=== PATIENT | female | born 1965 | race Caucasian/White ===

== ENCOUNTER 2016-08-21 03:30 | Inpatient (IN) | payer MEDICARE, OTHER ==
--- NOTE | ~2016-08-21 | CT71 ---
[facility] A Service of [facility] [place] RADIOLOGY TEXT RESULTS PATIENT: JOSE BELTRAN LOCATION: [facility] [address]16-32 : [birth year] UNIT #: [id number] AGE: [address]: Brittany Linder MD SEX: F ORDER DR: [id number] [facility] [address] [facility]. [place], [place] [address] [id number] MR#: [id number] Acc #: [id number] NAME: JOSE BELTRAN : 1965 SEX: F STUDY DATE/TIME: 08/21/2016 03:51 UNIT: [facility] ROOM: 55483 STUDY DESCRIPTION: CT Head Wo Contrast Attending Physician: Brittany Linder M.D. Ordering Physician: Magnolia FletcherPDannyRAscencion Primary Care Physician: Magnolia MusaPDannyRAscencion MEDICAL IMAGING REPORT This report is preliminary unless electronic signature is present EXAM Head CT, 08/21/2016 at 0351 hours. INDICATION Headaches with shaking and dizziness and generalized weakness that worsened yesterday. Symptoms started about 1 week ago intermittently. TECHNIQUE Axial images were obtained from the base to the vertex without contrast. Comparison is made with 05/05/2003. This CT exam was performed with one or more of the following radiation dose reduction techniques: automatic exposure control, adjustment of mA and/or kV according to patient size, and iterative reconstruction. FINDINGS There are some atherosclerotic calcifications in the carotid siphons and vertebral arteries. There are no skull fractures. Ventricular size and configuration are normal. There is no acute infarct or hemorrhage. There are no masses. IMPRESSION Mild intracranial atherosclerotic disease, otherwise negative head CT. Dictated by... Jose M Sidhu Jr., M.D. THIS IS AN ELECTRONICALLY VERIFIED REPORT Jose M Sidhu Jr., M.D. at 08/21/2016 5:30 AM EVAN/tamiko [facility] A Service of [facility] [place] RADIOLOGY TEXT RESULTS PATIENT: JOSE BELTRAN LOCATION: [facility] [address]58-69 : [birth year] UNIT #: [id number] AGE: [address]: Brittany Linder MD SEX: F ORDER DR: TD: 08/21/2016 05:12 JOB #: [id number] MEDICAL IMAGING REPORT COPY
--- NOTE | ~2016-08-21 | HP ---
Unit #: [id number] #: [id number] Patient: JOSE BELTRAN [id number] [address] [place], [place] [address] [id number] MR#: [id number] NAME: JOSE BELTRAN ROOM: 13881 Age: 51 Sex: F Admission Date: 08/21/2016 : 1965 Attending Physician: Brittany Linder M.D. Primary Care Physician: Shakeel Mccabe A.P.R.N. HISTORY AND PHYSICAL CHIEF COMPLAINT Lightheadedness, melena. HISTORY This 51-year-old female with COPD, chronic pancreatitis, IDDM, and previous admissions for GI bleeding, is admitted for melena and symptomatic anemia. The patient notes increasing weakness over the past week, and her family stated that she was pale appearing. Yesterday, developed melena, frontal headache, lightheadedness, nausea. She presents to this emergency department with a hemoglobin of 6.9, hematocrit of 22.3, MCV is low. On rectal examination, she does have heme positive stools. She is bolused with 500 mL of normal saline, given Zofran, Tylenol and Protonix. She does have abdominal pain but this is chronic, related to her chronic pancreatitis. The patient was last admitted to this facility 10/2015, for melena. An EGD was performed revealing small AVMs which were cauterized. Last colonoscopy, I believe, was 01/2015. A small polyp was removed. The patient reports capsule endoscopy but I do not have those results. PAST MEDICAL HISTORY 1. IDDM x6 years. 2. Hypertension. 3. COPD. 4. Chronic pancreatitis. 5. Anxiety and depression. 6. Chronic pain and chronic pancreatitis. 7. GI bleeding in the past. 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 Capsule endoscopy has been performed as well. 8. Colonoscopy, small polyp removed. 9. x2. ALLERGIES No known drug allergies. HOME MEDICATIONS 1. Lantus 24 units if sugar is greater than 250. 2. Neurontin 300 mg t.i.d. 3. Lisinopril 5 mg daily. 4. Paxil 20 mg daily. 5. Elavil 25 mg q. h.s. Unit #: [id number] #: [id number] Patient: JOSE BELTRAN 6. Prilosec two tablets daily. 7. Creon 25,000 units t.i.d. with meals. 8. Lortab 7.5 t.i.d. FAMILY HISTORY Throat cancer. SOCIAL HISTORY The patient lives with her daughter. Smokes one pack per day of tobacco, does not drink alcohol. REVIEW OF SYSTEMS Notable for chronic abdominal pain, melena, lightheadedness, headache, nausea, diabetes, hypertension, COPD, tobacco use, chronic pancreatitis, AVMs in the upper GI tract which were cauterized, above mentioned surgeries. All other systems were reviewed and are negative. PHYSICAL EXAMINATION GENERAL APPEARANCE: Pleasant, pale, thin, 51-year-old female, currently in no acute distress. VITAL SIGNS: Temperature 97.7, pulse 88, respirations 18, blood pressure 150/76. O2 saturation is 92% on room air. HEENT: Eyes PERRLA. Extraocular muscles are intact. Pharynx is benign. NECK: Supple without adenopathy or thyromegaly. CHEST: Expiratory wheezes. CARDIAC: Normal S1 and S2 without S3, S4 or murmur. ABDOMEN: Bowel sounds are present. Well-healed midline scar below the umbilicus. Mild distention. There is upper abdominal tenderness which the patient states is chronic. No definite hepatosplenomegaly or masses. RECTAL: Rectal examination in the ER was heme positive. EXTREMITIES: Without clubbing, cyanosis or edema. Pedal pulses are present. NEUROLOGIC EXAM: The patient is awake, alert, oriented. Cranial nerves are intact. Equal strength throughout. DIAGNOSTIC STUDIES LABORATORY: Admission labs - hematocrit is 22.3, hemoglobin 6.9, MCV is 66, white blood count 15.3, platelet count is 642. Coags normal. Chemistries pending. CARDIOVASCULAR: EKG - normal sinus rhythm, rate 74 with somewhat peaked T waves. ASSESSMENT 1. Melena, suspect upper gastrointestinal bleeding again: The patient does have a history of upper GI AVMs cauterized in the past. 2. Symptomatic microcytic anemia secondary to bleeding. 3. Chronic pancreatitis with chronic pain. 4. Insulin dependent diabetes mellitus. 5. Chronic obstructive pulmonary disease with mild exacerbation. PLANS 1. Transfuse two units of blood, obtain serial H and H, consult GI, and give IV proton pump inhibitor. 2. Lantus and sliding scale insulin. Current Accu-Chek is 186. IV Unit #: [id number] #: [id number] Patient: JOSE BELTRAN fluids with dextrose until taking p.o. 3. SCDs for DVT prophylaxis. 4. Duo-Nebs and NicoDerm patch. 5. Await chemistries. Dictated by Brittany Linder M.D. AML/df TD: 08/21/2016 05:28 JOB #: [id number] HISTORY AND PHYSICAL X Brittany Linder MD X HISTORY AND PHYSICAL
--- NOTE | ~2016-08-21 | EKG ---
PATIENT: JOSE BELTRAN UNIT #: [id number] Ventricular Rate: 74 BPM Atrial Rate: 74 BPM P-R Interval: 136 ms QRS Duration: 86 ms Q-T Interval: 360 ms QTC Calculation(Bezet): 399 ms P [place]: 77 degrees Calculated R [place]: 84 degrees Calculated T [place]: 79 degrees Diagnosis Line: Normal sinus rhythm Diagnosis Line: Nonspecific T wave abnormality Diagnosis Line: Abnormal ECG Diagnosis Line: No previous ECGs available Diagnosis Line: Confirmed by SMOOTH BIRMINGHAM MD ([id number]) on Diagnosis Line: 08/21/2016 8:07:37 AM INTERPRETING MD: MURPHY
--- NOTE | ~2016-08-21 | CR72 ---
[facility] A Service of [facility] RADIOLOGY TEXT RESULTS PATIENT: JOSE BELTRAN LOCATION: [facility] [address]-57 : [birth year] UNIT #: [id number] AGE: [address]: Brittany Linder MD SEX: F ORDER DR: [id number] [facility] [address] [facility]. [place], [place] [address] [id number] MR#: [id number] Acc #: [id number] NAME: JOSE BELTRAN : 1965 SEX: F STUDY DATE/TIME: 08/21/2016 02:25 UNIT: [facility] ROOM: STUDY DESCRIPTION: CR Chest Single View Portable Attending Physician: Mikayla Muhammad A.P.R.N. Ordering Physician: Mikayla Muhammad A.P.R.N. Primary Care Physician: Bisi MusaRAscencion MEDICAL IMAGING REPORT This report is preliminary unless electronic signature is present EXAM Portable chest, 08/21/2016 at 02:25 INDICATION Dizziness, weakness, chest pain, shaking, headache and black stools since 08/20/2016. FINDINGS AP portable chest is compared with 01/19/2010. The cardiac and mediastinal contours are normal. The lungs appear emphysematous but clear. No pneumothorax is seen. IMPRESSION The lungs appear emphysematous but clear. No active disease. Dictated by... Jose M Sidhu Jr., M.D. THIS IS AN ELECTRONICALLY VERIFIED REPORT Jose M Sidhu Jr., M.D. at 08/21/2016 5:30 AM EVAN/tamiko TD: 08/21/2016 03:21 JOB #: [id number] MEDICAL IMAGING REPORT COPY
--- NOTE | ~2016-08-21 | CO ---
Unit #: [id number] #: [id number] Patient: JOSE BELTRAN [id number] [address] [place], [place] [address] [id number] I MR#: [id number] NAME: JOSE BELTRAN. ROOM: 571 Age: 51 Sex: F Admission Date: 08/21/2016 : 1965 Attending Physician: Mookie Payan M.D. Primary Care Physician: Shakeel Mccabe A.P.R.N. Requesting Physician: Brittany Linder M.D. Consultation Date: 08/21/2016 CONSULTATION REPORT REASON FOR CONSULTATION GI bleed, anemia. HISTORY OF PRESENTING ILLNESS Ms. Beltran is a 51-year-old lady known to me from previous admissions. She has a history of GI bleeding from duodenal AVMs as well as chronic pancreatitis and chronic pain. She has a history of alcoholism. She was admitted last night complaining of weakness and black stools. She was found to have a hemoglobin of 6.9. She says she started with black stools yesterday morning. She has no nausea, vomiting or hematemesis. She has chronic abdominal pain which hasn't changed. She has no fever, no chills. She does take some NSAIDs occasionally despite telling her not to. PAST HISTORY Significant for: 1. EGD last year where multiple AVMs were seen in the duodenum and cauterized using APC. 2. Also has history of COPD. 3. Hypertension. 4. Type 2 diabetes mellitus. 5. Chronic pancreatitis. 6. Last colonoscopy was in 2014 where a small polyp was removed. MEDICATIONS Medications at home include: 1. Lantus insulin. 2. Neurontin. 3. Lisinopril. 4. Paxil. 5. Elavil. 6. Prilosec. 7. Creon. 8. Lortab. FAMILY HISTORY Noncontributory. SOCIAL HISTORY Smoker. Says no alcohol since 2008. REVIEW OF SYSTEMS A complete ten point review of systems was done which was unremarkable other than as mentioned above. Unit #: [id number] #: [id number] Patient: JOSE BELTRAN PHYSICAL EXAMINATION VITAL SIGN: Stable. No acute distress. HEENT: Pupils equal and reactive. Sclerae anicteric. Oral mucosa moist. NECK: No JVD, no lymphadenopathy. CHEST: Clear to auscultation, a few wheezes. CARDIOVASCULAR SYSTEM: Regular rate and rhythm. No murmurs. ABDOMEN: Mildly tender in the epigastric and umbilical area. No masses palpable, no ascites, no distention. RECTAL: Rectal exam in the emergency room heme positive. NEUROLOGICAL EXAM: Negative. DIAGNOSTIC STUDIES LABORATORY: Hemoglobin of 6.9, MCV of 66, Hemoccult positive. LFTs normal. ASSESSMENT AND PLAN 1. Patient with melenic stool: Possible recurrent upper GI bleeding from AVM's. Will plan on doing an upper endoscopy and a push enteroscopy for evaluation and cauterizing the lesions if seen. 2. Severe anemia: Seems to be acute on chronic. Will replace blood. Will also need replacement of iron, B12 and folate if found to be low. 3. Chronic pancreatitis: Continue with pain management and Creon. 4. Diabetes mellitus. 5. Chronic obstructive pulmonary disease. Thank you Dr. Linder for this interesting consult. Will follow along. Dictated by... Diego Andre M.D. COMFORT/betzaida TD: 08/21/2016 09:15 JOB #: [id number] CONSULTATION REPORT X Diego Andre MD X CONSULTATION REPORT
--- NOTE | ~2016-08-21 | A ---
[facility] Nutrition Therapy DATE: 08/21/16 Patient: JOSE Nielsen BELTRAN Physician: BLANCO Address: [address] [place] [address] Room/Bed: [address] [place] [address], Zip: [place] [address] Admit Date: 08/21/16 Date of : [birth year] Height: 5 0 Weight: 91 41.27 NUTRITIONAL ASSESSMENT: REASON: Seen for low BMI Admitting Dx: 51 y/o female admitted with possible GI bleed PMH: COPD, HTN, IDDM, GI bleed, chronic pancreatitis Anthropometrics: Ht: 63", Wt: 41.3 kg (90 lbs), BMI: 17, past weights: 70-94 lbs, weight on 11/29/15: 70 lbs Labs: Na 120, glucose 185, POC 184-227 Meds: Zofran prn, Creon 12, Levemir, PPI I/O & Bowel function: LBM 08/20, abdomen distended Skin Integrity: No issues, edema BLE trace Estimated Nutrition Needs: Increased Assessment: Chart reviewed, events noted. Patient admitted with possible GI bleed, is on 2L nasal cannula, A/O x 3, some anxiety. RD previously assessed this patient with last assessment on 11/29/15- note reviewed. The patient was 70 lbs at that time, she confirms 20 lb weight gain since that time. RD provided low-fat/CC diet education during that admission. The patient is currently NPO for endoscopy but she states her MD is gone for the day so she will not be having the procedure done. She states she wants to eat. She says she has had a recent admission at [facility] and she was drinking [address] wrote in patient's chart to order regular diet with Glucerna QID if ok with MD if the patient is not going to endo today. See RD recs, will follow hospital course. Dx: Underweight r/t history, clinical condition AEB BMI 17. Intervention: Regular diet, Glucerna QID Monitoring, Evaluation and Goals: 1. Adequate oral intake > 75% of meals/supps. 2. Gradual weight gain towards a healthy BMI range. 3. Improvement in blood glucose labs. Monitor: Per protocol, criteria to determine if above goals met [facility] Therapy DATE: 08/21/16 Patient: JOSE BELTRAN Physician: BLANCO Address: [address] [place] [address] Room/Bed: [address] [place] [address], Zip: [place] [address] Admit Date: 08/21/16 Date of : [birth year] Height: 5 0 Weight: 91 41.27 Recommendations: 1. Once medically able please order regular diet with chocolate Glucerna shakes QID. Encourage adequate oral intake. Patient has increased nutrient needs. 2. Please weigh q 3 days for monitoring purposes, as the patient is underweight. 3. Consider adding a SSI to medication regimen if hyperglycemia persists. Continue pancreatic enzymes 2/2 hx of chronic pancreatitis. Please add a daily MVI with minerals. RD will follow hospital course Mild-moderate nutrition risk Respectfully, Amanda Coreas, JOLEEN, LD Food and Nutritional Services [facility] cc: client file
--- NOTE | ~2016-08-21 | DS ---
Unit #: [id number] #: [id number] Patient: JOSE BELTRAN [id number] [address] [address] [id number] I MR#: [id number] NAME: JOSE BELTRAN ROOM: 571 Age: 51 Sex: F Admission Date: 08/21/2016 : 1965 Discharge Date: 08/22/2016 Attending Physician: Mookie Payan M.D. Primary Care Physician: Shakeel Mccabe A.P.R.N. DISCHARGE SUMMARY DISCHARGE DIAGNOSES 1. Likely acute lower gastrointestinal bleed with melena. 2. Acute blood loss anemia due to #1. The patient has received 2 units of blood transfusions. Hemoglobin and hematocrit were stable at 9.7 and 30.1 at this time. 3. Chronic pancreatitis. 4. Type 2 diabetes. 5. Chronic obstructive pulmonary disease. 6. Essential hypertension. 7. Anxiety and depression. 8. Chronic headache that keep worsening. CONSULTANTS Dr. Andre with Gastroenterology, who is scheduled to perform an endoscopy on this patient today. DIAGNOSTIC STUDIES IMAGING STUDIES: Consist of x-ray on 08/21/2016, impression is, the lungs appeared emphysematous, but clear. No active disease. Head CT without contrast, impression, mild intracranial atherosclerotic disease, otherwise negative PET-CT. LABORATORY RESULTS: Include BMP; glucose 130 and 176, BUN 6, creatinine 0.3. Sodium 135, potassium 4.0, chloride 199, CO2 of 26, calcium 9.2, total protein 6.5, total albumin 3.3, total bilirubin is 0.3. AST is 18, ALT is 12, alkaline phosphatase is 81, amylase is 7, and lipase is 15. CBC; WBC 13.3, RBC 4.26, hemoglobin 7.9, hematocrit 30.1, and MCV is 71.6, MCH is 22.8, MCHC is 31.8, RDW is 22.5, platelets 515, MPV is 6.4. HOSPITAL COURSE The patient is a 51-year-old female with past medical history of GI bleed, COPD, chronic pancreatis, type 2 diabetes, previous GI bleed, who presents to emergency department due to weakness for the last one week and noted to be pale by her family. On the day prior to admission, the patient had developed melena, frontal headache, lightheadedness, nausea. The patient presents to the emergency department, where her hemoglobin and hematocrit was found to be 6.9 and 22.3. On rectal exam, she did have heme-positive stools. She was bolused with normal saline, given Zofran, Tylenol, and Protonix. She has also had abdominal pain, but it is chronic and related to chronic pancreatis. She was admitted to this facility in 10/2015 for melena and EGD was performed, which revealed small AVMs, which are cauterized. Colonoscopy was done in 01/2015, a small polyp was removed. Unit #: [id number] #: [id number] Patient: JOSE BELTRAN She was admitted for melena with likely upper GI bleed as well as acute blood loss anemia. Dr. Andre of Gastroenterology was consulted. He is taking the patient to endoscopy today. Please see report for full dictated procedure note for further details. At the time of my assessment, the patient is stable. She is no longer having any melena as she has no longer had any bowel movements. She tells me that she still have persistent headache, which sounds to be a migraine headache with sensitivity to light and noise, and was nauseas, but this time have resolved. I am recommending the patient to discharge home after the endoscopy is done, and if it is okay with Dr. Andre, I am going to try the patient on triptan to see if this will help with her headache. DISCHARGE CONDITION Stable. DISCHARGE DIET Heart healthy as well as [place]ese diet and compliance with a consistent carb, and compliance with [place] [employer] diet. ACTIVITY Resume the activity as was prior to hospitalization with ambulating every day as tolerated. DISCHARGE FOLLOWUP She is to follow up with primary care physician within 1 to 2 weeks and follow up with Dr. Andre per his orders. DISCHARGE MEDICATIONS Includes Neurontin 300 mg orally t.i.d., amitriptyline 25 mg orally daily, Paxil 20 mg orally daily, Lantus 24 units subcutaneously daily, Lortab 7.5 one tablet orally t.i.d., Prilosec 20 mg orally daily, Creon one capsule orally t.i.d. I will be giving her a trial of sumatriptan (Imitrex) 25 mg orally to be repeated every two hours for unresolved symptoms not to exceed more than 200. Dictated by... Elizabeth Vaughn PA-C for [place] Glover/suresh TD: 08/25/2016 10:47 JOB #: [id number] DISCHARGE SUMMARY X X DISCHARGE SUMMARY
--- NOTE | ~2016-08-21 | OR ---
Unit #: [id number] #: [id number] Patient: JOSE BELTRAN [id number] [address] [place], [place] [address] [id number] I MR#: [id number] NAME: JOSE BELTRAN ROOM: 571 Date of Procedure: 08/22/2016 Admission Date: 08/21/2016 Surgeon: Diego Andre M.D. : 1965 Attending Physician: Mookie Payan M.D. Primary Care Physician: Magnolia MusaPDannyRAscencion OPERATIVE REPORT PROCEDURE PERFORMED Esophagogastroduodenoscopy to descending duodenum and enteroscopy to proximal jejunum. MEDICATIONS Monitored anesthesia. INDICATIONS The patient presented with significant upper GI bleeding, anemia of acute blood loss, history of AVMs in the past. MEDICATIONS Monitored anesthesia. POSTOPERATIVE FINDINGS 1. EGD exam shows evidence of small hiatal hernia. 2. Chronic appearing gastritis. No biopsies taken. 3. Normal duodenum and distal duodenum. 4. Proximal jejunum up to 60 cm shows normal mucosa with no evidence of any AVMs or active bleeding. PLAN Continue supportive care. Watch H and H. DESCRIPTION OF PROCEDURE The patient was explained of the procedure, risks, and benefits along with the risks and benefits of anesthesia. She was brought to the endoscopy room. Propofol anesthesia was given. Bite block was placed. The scope was passed down the mouth into esophagus, stomach, duodenum, and distal duodenum. At this point, we continued to push the scope further into the jejunum up to 60 cm. Mucosa was normal and healthy. The scope was pulled back into the stomach. Findings as described. Gently, the scope was pulled out. She tolerated it well. No major complications were seen. Dictated by... Dayton Figueroa/suresh TD: 08/23/2016 04:07 Unit #: [id number] #: [id number] Patient: JOSE BELTRAN JOB #: [id number] OPERATIVE REPORT X Diego Andre MD X PROCEDURE OPERATIVE NOTE
[2016-08-21 02:44] LABS: BASOPHIL# 0.2 X10e3 (0-0.3); BASOPHIL% 1.6 % (0-2.5); EOSINOPHIL# 0.2 X10e3 (0-0.7); EOSINOPHIL% 1.2 % (0.0-7.0); HEMATOCRIT 22.3 % (35.0-45.0); LYMPHOCYTE# 3.3 X10e3 (1.0-3.5); LYMPHOCYTE% 21.9 % (17.0-45.0); MEAN CELL VOLUME 66.7 FL (83-96); MEAN CORPUSCULAR HEMOGLOBIN 20.6 PG (28-34); MEAN CORPUSCULAR HGB CONC 30.8 g/dL (30-36); MEAN PLATELET VOLUME 6.8 FL (6.5-11.5); MONOCYTE# 1.4 X10e3 (0-1.0); MONOCYTE% 9.2 % (3.0-12.0); NEUTROPHIL# 10.1 X10e3 (1.5-7.1); NEUTROPHIL% 66.1 % (40-75); PLATELET COUNT 642 X10e3 (140-420); RED BLOOD COUNT 3.35 X10e (3.90-5.30); RED CELL DISTRIBUTION WIDTH 18.4 % (11.0-15.5); WHITE BLOOD COUNT 15.3 X10e3 (4.0-10.5)
[2016-08-21 02:46] LABS: DIFF IND YES; HEMOGLOBIN 6.9 gm/dL (12.0-16.0)
[2016-08-21 02:49] LABS: POC - CKMB 5.1 ng/mL (0.0-7.9); POC - TROPONIN <0.05 ng/mL (<=0.05)
[2016-08-21 03:10] LABS: ELLIPTOCYTES PRESENT; HYPOCHROMIA MOD; MICROCYTOSIS MOD; PLATELET ESTIMATE INCREASED (NORMAL)
[2016-08-21 03:11] LABS: BURR CELLS PRESENT
[2016-08-21 03:26] LABS: INFLUENZA A NEG (NEG); INFLUENZA B NEG (NEG)
[~2016-08-21 03:30] MED LIST: ALBUTEROL INHALER; ALBUTEROL17 G1 INH; ALBUTEROL17 GM INH; AMITRIPTYLINE H25 MG PO; APIDRA; BUTALBITAL PO; CLONAZEPAM0.5 MG PO; CREON 101 CAP; CREON DR 12,001 EAC1 PO; CREON DR 12,001 EAC2 PO; ENSURE LIQUID237 M2 PO; HYDROCODON-ACE1 EAC9 PO; LANTUS SUBQ; LANTUS100 U/ML; LOPID600 MG PO; LORTAB 10-5001 EACH PO; METOPROLOL TAR25 MG PO; MIRTAZAPINE7.5 MG PO; MULTICHEW1 TAB.CHEW PO; NEBULIZER; PHENERGAN PO; PHENERGAN25 M1 PO; PRILOSEC PO; SIMVASTATIN40 MG PO; VITAMIN D400 UNI1 PO; ZYRTEC10 M2 PO; [UNRECOGNIZED DRUG - REMARK]
[2016-08-21 03:57] LABS: ALBUMIN SERUM 3.8 g/dL (3.5-5.0); ALKALINE PHOSPHATASE 81 U/L (32-92); ALT (SGPT) 15 U/L (10-40); AMYLASE 7 U/L (0-46); AST (SGOT) 21 U/L (10-42); BILIRUBIN,TOTAL 0.4 mg/dL (0.2-2.0); BLOOD UREA NITROGEN 21 mg/dL (9-23); CALCIUM SERUM 8.1 mg/dL (8.4-10.2); CARBON DIOXIDE 24 mmol/L (22-31); CHLORIDE 87 mmol/L (100-111); CREATININE SERUM 0.5 mg/dL (0.6-1.4); GLOM FILT RATE Estimated ABOVE60 mL/min (>60); GLUCOSE FASTING 185 mg/dL (70-110); LIPASE 15 U/L (22-51); POTASSIUM 4.1 mmol/L (3.5-5.1)
[2016-08-21 03:58] LABS: BILIRUBIN, DIRECT 0.1 mg/dL (0.0-0.2); BILIRUBIN,INDIRECT 0.3 mg/dL (0.0-0.9); SODIUM 120 mmol/L (135-145)
[2016-08-21] MEDS ORDERED: LANTUS100 U/ML SUBQ (04:02)
[2016-08-21] MEDS ORDERED: NEURONTIN300 MG PO (04:02)
[2016-08-21] MEDS ORDERED: AMITRYPTYLINE PO (04:03)
[2016-08-21] MEDS ORDERED: PAXIL PO (04:03)
[2016-08-21] MEDS ORDERED: PRILOSEC PO (04:03)
[2016-08-21] MEDS ORDERED: LORTAB 7.51 TAB PO (04:04)
[2016-08-21] MEDS ORDERED: CREON DR 24,001 EACH PO (04:05)
[2016-08-21 13:32] LABS: MEAN CORPUSCULAR HEMOGLOBIN 23.1 PG (28-34); MEAN CORPUSCULAR HGB CONC 31.8 g/dL (30-36); RED BLOOD COUNT 4.14 X10e (3.90-5.30); RED CELL DISTRIBUTION WIDTH 21.9 % (11.0-15.5); WHITE BLOOD COUNT 9.4 X10e3 (4.0-10.5)
[2016-08-21 13:33] LABS: HEMOGLOBIN 9.5 gm/dL (12.0-16.0); MEAN CELL VOLUME 72.6 FL (83-96)
[2016-08-21 20:08] LABS: HEMATOCRIT 32.2 % (35.0-45.0); HEMOGLOBIN 10.1 gm/dL (12.0-16.0)
[2016-08-22 00:39] LABS: HEMATOCRIT 28.1 % (35.0-45.0); HEMOGLOBIN 9.2 gm/dL (12.0-16.0)
[2016-08-22 06:28] LABS: HEMATOCRIT 30.5 % (35.0-45.0); HEMOGLOBIN 9.7 gm/dL (12.0-16.0); MEAN CELL VOLUME 71.6 FL (83-96); MEAN CORPUSCULAR HEMOGLOBIN 22.8 PG (28-34); MEAN CORPUSCULAR HGB CONC 31.8 g/dL (30-36); MEAN PLATELET VOLUME 6.4 FL (6.5-11.5); RED BLOOD COUNT 4.26 X10e (3.90-5.30); RED CELL DISTRIBUTION WIDTH 22.5 % (11.0-15.5); WHITE BLOOD COUNT 13.2 X10e3 (4.0-10.5)
[2016-08-22 07:13] LABS: FOLATE (FOLIC ACID) 18.9 ng/mL (>5.8)
[2016-08-22 07:34] LABS: ALBUMIN SERUM 3.3 g/dL (3.5-5.0); ALKALINE PHOSPHATASE 81 U/L (32-92); ALT (SGPT) 12 U/L (10-40); AST (SGOT) 18 U/L (10-42); BILIRUBIN,TOTAL 0.3 mg/dL (0.2-2.0); BLOOD UREA NITROGEN 6 mg/dL (9-23); CALCIUM SERUM 9.2 mg/dL (8.4-10.2); CARBON DIOXIDE 26 mmol/L (22-31); CHLORIDE 99 mmol/L (100-111); CREATININE SERUM 0.3 mg/dL (0.6-1.4); GLOM FILT RATE Estimated ABOVE60 mL/min (>60); GLUCOSE FASTING 176 mg/dL (70-110); PROTEIN TOTAL SERUM 6.5 g/dL (6.0-8.3); SODIUM 135 mmol/L (135-145); TRANSFERRIN 392 mg/dL (192-382)
[2016-08-22 12:45] LABS: HEMATOCRIT 30.1 % (35.0-45.0); HEMOGLOBIN 9.7 gm/dL (12.0-16.0)
[2016-08-22] MEDS ORDERED: FLOMAX0.4 M1 PO (13:46)
[2016-08-22] MEDS ORDERED: FERRO-TIME325 MG PO (16:44)
[2016-08-22] MEDS ORDERED: IMITREX25 MG PO (16:45)
[2016-08-22] MEDS ORDERED: NICOTINE PATCH1 EACH TD (16:49)
== END 2016-08-22 18:02 | disposition home or self-care (01) | DRG 378 ==
LOC: CED 03:30 → CEDOF 03:53 → C5C 05:50
PROVIDERS: Internal Medicine; Nurse Practitioner
PROC: 30233N1 Transfusion of Nonautologous Red Blood Cells into Peripheral Vein, Percutaneous Approach (ICD-10-PCS; principal; 2016-08-21)
PROC: 0DJ08ZZ Inspection of Upper Intestinal Tract, Via Natural or Artificial Opening Endoscopic (ICD-10-PCS; 2016-08-21)
DX: K92.2 Gastrointestinal hemorrhage, unspecified (principal); D62 Acute posthemorrhagic anemia; J44.1 Chronic obstructive pulmonary disease with (acute) exacerbation; I10 Essential (primary) hypertension; K86.1 Other chronic pancreatitis; F41.9 Anxiety disorder, unspecified; F32.9 Major depressive disorder, single episode, unspecified; E11.9 Type 2 diabetes mellitus without complications; F17.210 Nicotine dependence, cigarettes, uncomplicated; R51 Headache; Z79.4 Long term (current) use of insulin; K29.50 Unspecified chronic gastritis without bleeding; K44.9 Diaphragmatic hernia without obstruction or gangrene
CPT/HCPCS: 36415; 70450; 71010; 80048; 80053; 80076; 82150; 82553; 82607; 82728; 82746; 82947; 83540; 83690; 84443; 84466; 84484; 85014; 85018; 85025; 85027; 85610; 85730; 86850; 86900; 86901; 86923; 87651; 87804; 87880; 93005; 94640; 94760; 96361; 96374; 96375; 99285; C9113; J1815; J2270; J2405; P9016

== ENCOUNTER 2016-09-21 04:10 | Inpatient (IN) | payer MEDICARE, OTHER ==
--- NOTE | ~2016-09-21 | HP ---
Unit #: [id number] #: [id number] Patient: JOSE BELTRAN [id number] [address] [place], [place] [address] [id number] I MR#: [id number] NAME: JOSE BELTRAN ROOM: 312 Age: 51 Sex: F Admission Date: 09/21/2016 : 1965 Attending Physician: Cindy Bridges M.D. Primary Care Physician: Shakeel Mccabe A.P.R.N. HISTORY AND PHYSICAL REASON FOR ADMISSION Respiratory failure, drug overdose, HCAP. HISTORY OF PRESENT ILLNESS The patient is a 51-year-old female, whom I have elicited this history and review of systems after chart review, discussion with ER physician, as well as a previous chart review as the patient currently has received 2 mg of IV Ativan as fairly sedated. Apparently for the past several days, she had been taking methamphetamines, although her urine tox screen was negative for it. She was out, wandering the streets and was found by [facility], brought to the emergency room for evaluation. Through ER course, she had a chest x-ray which raised the possibility of acute infiltrates, was placed on HCAP protocol as she had been recently admitted to our institution in late 07/2016 for lightheadedness as well as melena. PAST MEDICAL HISTORY Prior history of chronic pancreatitis on chronic pain medications, insulin-dependent diabetes, hypertension, COPD, anxiety/depression, GI bleeding issues in the past. ALLERGIES No known drug allergies. HOME MEDICATIONS Lantus, Neurontin, lisinopril, Paxil, Elavil, Prilosec, pancreatic enzymes, Lortab. FAMILY HISTORY Throat cancer. SOCIAL HISTORY Resides at home with her 15-year-old daughter and lifelong partner, who is not her . Smokes one pack of cigarettes per day. Uses social/substance abuse regularly. Does not consume alcohol per report. REVIEW OF SYSTEMS Please see HPI. Twelve point otherwise negative except for those positive noted in the HPI and again limited secondary to current condition. Unit #: [id number] #: [id number] Patient: JOSE BELTRAN PHYSICAL EXAMINATION VITAL SIGNS: Temperature on admission 99.3, pulse 123, respiratory rate 31, blood pressure 158/112. GENERAL APPEARANCE: A 51-year-old frail female, in no acute distress. HEENT: Atraumatic and normocephalic. NECK: Supple. CVS: S1, S2. Tachycardic without murmur. RESPIRATORY: Coarse breath sounds are noted with bilateral wheeze. GI/ABDOMEN: Nontender, nondistended. SKIN: Reveals bruising of her lower extremity, more marked in the upper extremity especially around wrist area. NEUROLOGIC: The patient is currently sedated after receiving IV Ativan. DIAGNOSTIC STUDIES LABORATORY RESULTS: Include lactic acid level initially 0.6, repeat 0.9. BMP; sodium 132, blood sugar 359. AST and ALT 143 and 60. CK level 3962. Urine drug screen positive for opioids as well as TCA. Initial urinalysis positive for blood, protein. INITIAL ADMISSION DIAGNOSES 1. Acute respiratory failure. 2. Acute infiltrate seen on chest x-ray/health care-associated pneumonia. 3. Substance abuse. 4. History of chronic pain syndrome. 5. Chronic pancreatitis. 6. Anemia. 7. Diabetes with insulin dependence. 8. Underlying mental illness/mood disorder/anxiety. 9. History of rectal bleeding/gastrointestinal bleeding issues in the past. 10. Failure to thrive. 11. Severe malnutrition likely secondary to poor p.o. intake as well as protein malnutrition seen on admission. 12. Hypertension. 13. Tachycardia, likely secondary to acute dehydration. PLAN Admission normal saline, routine laboratory studies, 72-hour hold. Sitter at bedside. Dr. Ferguson on consult. Hospital course to follow once the patient is more alert and oriented. Check CT chest to ascertain if infiltrate or not, for now maintained on HCAP protocol. Discontinue sepsis protocol for now as elevated heart rate likely secondary to acute dehydration clinically seen. Dictated by Dayton Funes/suresh TD: 09/22/2016 00:30 JOB #: [id number] Unit #: [id number] #: [id number] Patient: JOSE BELTRAN HISTORY AND PHYSICAL Page 1 of 1 X Cindy Bridges MD HISTORY AND PHYSICAL
--- NOTE | ~2016-09-21 | CO ---
Unit #: [id number] #: [id number] Patient: JOSE BELTRAN [id number] [facility] [address] [facility]. [place], [place] [address] [id number] I MR#: [id number] NAME: JOSE BELTRAN ROOM: 312 Age: 51 Sex: F Admission Date: 09/21/2016 : 1965 Attending Physician: Cindy Bridges M.D. Primary Care Physician: Shakeel Mccabe A.P.R.N. Consultation Date: 09/21/2016 CONSULTATION REPORT REASON FOR CONSULTATION Meth abuse, confusion, and paranoia. HISTORY OF PRESENT ILLNESS Ms. Jose Beltran is a 51-year-old white female, seen in room 312 on 09/21/[address] [facility]. The patient reported that she was at [employer] and use something. The patient was confused and agitated at the time of admission. The patient was unable to give any reliable information. The patient was placed on 72-hour hold upon admission. The patient was somewhat guarded, paranoid. The patient's daughter was at the bedside. The patient was delusional, paranoid, guarded at the time of admission. The patient was also agitated, [facility]. The patient reported using meth. Possible drug overdose, hyperglycemia, rhabdomyolysis, sepsis. The patient run out of the room while the sitter was there. The patient's behavior was irrational, guarded, paranoid. PAST PSYCHIATRIC HISTORY Remarkable for history of depression and anxiety. MEDICAL HISTORY Remarkable for history of chronic pancreatitis, type 2 diabetes, COPD, essential hypertension, history of anxiety, depression, chronic headaches. MEDICATION HISTORY The patient takes Lantus, Neurontin, Paxil, amitriptyline, Prilosec. The patient is also on Lortab, Creon, and Imitrex. ALLERGIES No known drug allergies. FAMILY HISTORY AND SOCIAL HISTORY The patient's family history is unavailable at this time. The patient has a daughter 15-year-old female, who was at the bedside. No known history of any abuse. History of substance abuse as mentioned above. History of opioid abuse and methamphetamine abuse. REVIEW OF SYSTEMS Complete review of systems is unremarkable for any complaints at this time, but somewhat guarded, anxious, paranoid. MENTAL STATUS EXAMINATION General appearance; the patient thin built, looked older than her age, hygiene and grooming were poor, dressed in hospital attire. Attention Unit #: [id number] #: [id number] Patient: JOSE BELTRAN span and concentration, poor. Speech, slow and poor articulation. Oriented in place. Mood and affect were labile. Thought process was circumstantial. Thought content, guarded, paranoid, delusional, but denied any thoughts of harming self or others, but tried to elope. Recent and remote memory, poor. Language, able to name object and repeat phrases. Fund of knowledge, impaired. Insight and judgment, fair to slightly impaired. DIAGNOSES Psychiatric: 1. Delirium, F05, resolving. 2. Opioid use disorder, severe, F11.20. 3. Methamphetamine abuse, moderate, F15.20. 4. Mood disorder, not otherwise specified. 5. Rule out major depressive disorder, F33.2. Secondary diagnosis: Deferred. Medical diagnosis: Please refer to H and P. Stressors: Psychosocial stressor. ASSESSMENT/PLAN 1. Supportive psychotherapy and psychoeducation provided to the patient. 2. Recommending at this time to continue with current treatment, continue with 72-hour hold and one-to-one monitoring. Monitor for elopement. Advised to start the patient on Zyprexa 10 mg b.i.d. for psychotic symptom. We will closely monitor the patient's mood and behavior. If needed, consider further adjustment of medication. Please feel free to call if any questions, telephone #[phone]. Dictated by... Dayton Arriaza/suresh TD: 09/22/2016 07:55 JOB #: [id number] CONSULTATION REPORT Page 1 of 1 X Johnathan Ferguson MD X CONSULTATION REPORT
--- NOTE | ~2016-09-21 | DS ---
Unit #: [id number] #: [id number] Patient: JOSE BELTRAN [id number] [address] [place], [place] [address] [id number] I MR#: [id number] NAME: JOSE BELTRAN ROOM: 312 Age: 51 Sex: F Admission Date: 09/21/2016 : 1965 Discharge Date: 09/23/2016 Attending Physician: Cindy Bridges M.D. Primary Care Physician: Shakeel Mccabe A.P.R.N. DISCHARGE SUMMARY REASON FOR ADMISSION Respiratory failure, drug overdose, HCAP. HISTORY OF PRESENT ILLNESS/HOSPITAL COURSE The patient is a very pleasant 51-year-old female, who I elicited the initial history and physical through ER discussion. Please see H and P for complete details. Apparently, she had been taking methamphetamines as an outpatient. However, today at time of discharge, she adamantly denies that she ever took any methamphetamines in fact her urine tox screen when she was evaluated was negative. Apparently, she was found wandering the streets, was found by [facility] and was brought to the emergency department for evaluation. She was initially agitated. While in the emergency room, she received Ativan, underwent routine laboratory studies as well as imaging studies which raise the possibility of bilateral pneumonia and thus, she was admitted for the same. Through hospital course, her blood cultures did not yield any acute bacterial growth. We placed a 72-hour hold because the patient herself was a very poor historian. She was placed on routine IV antibiotics. She underwent a CT chest without contrast on 09/22/2016, which revealed the aforementioned infiltrate. Initially, her CK level was noted to be greater than 4000 consistent with acute rhabdomyolysis. She was maintained on copious IV fluids while she was here. Her creatinine and kidney function did resume and her CK level did come back to normal and is currently resolving. Her hemoglobin at the time of discharge is 9.6, her MCV is decreased at 77. She does have a prior history of anemia. It should be noted that her hemoglobin A1c in this hospital admission was 8.4%. We did consult Dr. Ferguson of Psychiatry Services, who saw and evaluated the patient. He recommended continuing a 72-hour hold as well as place the patient on Zyprexa. We will await Dr. Ferguson's re-evaluation today if the patient is Unit #: [id number] #: [id number] Patient: JOSE BELTRAN cleared. She states that she is not suicidal at the present time and that she denies any drug use. We will plan to discharge the patient to home. Overall, the patient's prognosis is poor secondary to her lack of insight into her disease and chance of readmission is high. FINAL DISCHARGE DIAGNOSES 1. Toxic-metabolic encephalopathy seen on the day of admission, multifactorial etiology. 2. Polysubstance dependence. 3. Narcotic dependence. 4. Chronic pain syndrome. 5. Chronic pancreatitis. 6. Insulin dependent diabetes. 7. Hypertension. 8. Chronic obstructive pulmonary disease. 9. Failure to thrive/poor nutritional status. FINAL DISCHARGE MEDICATIONS Neurontin 300 mg p.o. q.8, Paxil 20 mg p.o. daily, nicotine transdermal 21 mg patch q.24 hours, Lantus 24 units subcu daily, ferrous sulfate 325 mg p.o. daily, Lortab 7.5/325 one tablet p.o. q.8 p.r.n. No new prescription given. Home medications; omeprazole 20 mg p.o. daily, pancreatic enzymes as directed p.o. q.8, Levaquin 750 mg p.o. daily x10 days. Zyprexa dosage as well as a regimen to be determined by Dr. Ferguson after he sees and evaluates the patient later this afternoon. Dictated by... Dayton Funes/suresh TD: 09/24/2016 00:00 JOB #: [id number] DISCHARGE SUMMARY Page 1 of 1 X Cindy Bridges MD X DISCHARGE SUMMARY
--- NOTE | ~2016-09-21 | CO ---
Unit #: [id number] #: [id number] Patient: JOSE BELTRAN [id number] [address] [address] [id number] I MR#: [id number] NAME: JOSE BELTRAN ROOM: 312 Age: 51 Sex: F Admission Date: 09/21/2016 : 1965 Attending Physician: Cindy Bridges M.D. Primary Care Physician: Shakeel Mccabe A.P.R.N. Consultation Date: 09/22/2016 CONSULTATION REPORT REASON FOR CONSULTATION Followup. DISCUSSION Jose Beltran is a 71-year-old female seen on 09/22/2016. The patient was seen in room 312. Patient continues to be paranoid, irritable mood, angry, agitated. Patient has a history of opiate use and methamphetamine use, mood disorder, delirium. The patient tried to elope yesterday. Currently, has a sitter but still very mad, angry, upset easily. PHYSICAL EXAMINATION VITAL SIGNS: 98.2, pulse 74, respiratory rate 18, blood pressure 128/75, oxygen saturation 98%. GENERAL: Patient continues to be guarded, paranoid, mood lability. REVIEW OF SYSTEMS Complete review of systems is unremarkable. MENTAL STATUS EXAMINATION GENERAL APPEARANCE: The patient is dressed casually in hospital attire. Attention span and concentration poor. Speech rapid. Oriented to place. Mood and affect labile. Thought process circumstantial. Thought content guarded, paranoid. Recent and remote memory poor. Language able to name objects. Fund of knowledge poor. Insight and judgment impaired. PSYCHIATRIC DIAGNOSIS 1. Psychosis, not otherwise specified. 2. Delirium, F05, resolving. 3. Opiate use disorder, severe, F11.20. 4. Methamphetamine use disorder, moderate, F15.20. 5. Mood disorder, not otherwise specified. F32.9. ASSESSMENT AND PLAN 1. Supportive psychotherapy. Psychoeducation provided to patient. 2. I advised we are going to continue with the hold and one-to-one monitoring. Continue with current medication. If needed, consider further additional medication. 3. We will closely monitor. Unit #: [id number] #: [id number] Patient: BELTRAN,JOSE Dictated by... Dayton Arriaza/velma TD: 09/23/2016 20:54 JOB #: [id number] CONSULTATION REPORT Page 1 of 1 X Johnathan Ferguson MD CONSULTATION REPORT
--- NOTE | ~2016-09-21 | CT57 ---
[facility] A Service of [facility] RADIOLOGY TEXT RESULTS PATIENT: JOSE BELTRAN LOCATION: C3A : [birth year] UNIT #: [id number] AGE: [address]: Cindy Bridges MD SEX: F ORDER DR: [id number] [facility] [address] [facility]. [place], [place] [address] [id number] I MR#: [id number] Acc #: [id number] NAME: JOSE BELTRAN : 1965 SEX: F STUDY DATE/TIME: 09/22/2016 14:43 UNIT: C3A PCU ROOM: 312 STUDY DESCRIPTION: CT Chest Wo Cont Attending Physician: Cindy Bridges M.D. Ordering Physician: Cindy Bridges M.D. Primary Care Physician: Shakeel Mccabe A.P.R.N. MEDICAL IMAGING REPORT This report is preliminary unless electronic signature is present EXAM CT of the chest without contrast, 09/22/2016 INDICATIONS 51-year-old female with an abnormal chest x-ray. Concern for pneumonia. TECHNIQUE CT of the chest performed without contrast. Coronal and sagittal reformatted images were obtained. This CT exam was performed with one or more of the following radiation dose reduction techniques: automatic exposure control, adjustment of mA and/or kV according to patient size, and iterative reconstruction. COMPARISON Chest x-ray from yesterday. FINDINGS There are patchy airspace infiltrates in both lungs. Infiltrates are greater on the left than the right. Findings are most suggestive of pneumonia. Followup to clearing is recommended. No lymphadenopathy or pleural effusion. Coronary artery calcification. Limited imaging of the upper abdomen is unremarkable. Bone windows are unremarkable. IMPRESSION Patchy infiltrates bilaterally, left greater than right. Findings are most suggestive of pneumonia. Followup to clearing is recommended. Dictated by... Goldy Barnes M.D. [facility] A Service of [facility] RADIOLOGY TEXT RESULTS PATIENT: JOSE BELTRAN LOCATION: [facility] 312 : [birth year] UNIT #: [id number] AGE: [address]: Cindy Bridges MD SEX: F ORDER DR: THIS IS AN ELECTRONICALLY VERIFIED REPORT Goldy Barnes M.D. at 09/23/2016 10:01 AM Maddie TD: 09/22/2016 21:04 JOB #: [id number] MEDICAL IMAGING REPORT Page 1 of 1 COPY
--- NOTE | ~2016-09-21 | CR72 ---
[facility] A Service of [facility] RADIOLOGY TEXT RESULTS PATIENT: JOSE BELTRAN LOCATION: [facility] 312-01 : [birth year] UNIT #: [id number] AGE: [address]: Cindy Bridges MD SEX: F ORDER DR: [id number] [facility] [address] [facility]. [place], [place] [address] [id number] I MR#: [id number] Acc #: [id number] NAME: JOSE BELTRAN : 1965 SEX: F STUDY DATE/TIME: 09/21/2016 4:03 UNIT: [address] ROOM: [facility] STUDY DESCRIPTION: CR Chest Single View Portable Attending Physician: Cindy Bridges M.D. Ordering Physician: Ivette Rosas M.D. Primary Care Physician: Bisi MusaRAscencion MEDICAL IMAGING REPORT This report is preliminary unless electronic signature is present EXAM Frontal chest 09/21/2016 INDICATIONS 51-year-old female with weakness, altered mental status, shortness of air, overdosed today TECHNIQUE Frontal chest was performed. COMPARISON 09/18/2016 FINDINGS Cardiac silhouette is within normal limits for technique. The vascularity is unremarkable. The lungs demonstrate sequela of COPD with underlying fibrosis and scarring. There is subtle new faint atelectasis or infiltrate in the midlung zone on the left. Improvement in the appearance of the right lung since the prior study. Residual opacities in the midlung on the right remain faintly present. No pneumothorax. No effusion. IMPRESSION 1. Faint atelectasis or infiltrate in the midlung zone on the left. 2. Residual faint atelectasis or infiltrate in the right lung persist but demonstrates improvement compared to the prior study. 3. Chronic lung changes including COPD. 4. Follow to clearing after appropriate therapy is recommended Dictated by... Aris Beasley M.D. THIS IS AN ELECTRONICALLY VERIFIED REPORT [facility] A Service of [facility] RADIOLOGY TEXT RESULTS PATIENT: JOSE BELTRAN LOCATION: [facility] 312-01 : [birth year] UNIT #: [id number] AGE: [address]: Cindy Bridges MD SEX: F ORDER DR: Aris Beasley M.D. at 09/21/2016 9:56 PM Anabella TD: 09/21/2016 15:10 JOB #: [id number] MEDICAL IMAGING REPORT Page 1 of 1 COPY
--- NOTE | ~2016-09-21 | CO ---
Unit #: [id number] #: [id number] Patient: JOSE BELTRAN [id number] [facility] [address] [facility]. [place], [place] [address] [id number] I MR#: [id number] NAME: JOSE BELTRAN ROOM: [facility] Age: 51 Sex: F Admission Date: 09/21/2016 : 1965 Attending Physician: Cindy Bridges M.D. Primary Care Physician: Shakeel Mccabe A.P.R.N. Consultation Date: 09/23/2016 CONSULTATION REPORT REASON FOR CONSULTATION Followup. DISCUSSION Ms. Jose Beltran is a 51-year-old female, seen at [facility] on 09/23/2016. The patient was pleasant and cooperative. Hygiene and grooming, fair. Able to answer questions appropriately. Mood was brighter. Denied any thoughts of harming self or others. The patient was able to answer questions coherently. Compliant behavior. The patient denied any other complaints. REVIEW OF SYSTEMS Complete review of systems is unremarkable. MENTAL STATUS EXAMINATION General appearance, the patient dressed in hospital attire, sitting in a propped up position, made good eye contact. Attention span and concentration, fair. Speech, regular rate and coherent. Oriented in time, place, and person. Mood and affect were sad and dysphoric, but able to smile. Thought process, coherent. Thought content, the patient denied any thoughts of harming self or others. Recent and remote memory, fair. Language, able to name object and repeat phrases. Fund of knowledge, fair. Insight and judgment were fair to slightly impaired. DIAGNOSES Psychiatric: 1. Opioid use disorder, severe, F11.20. 2. Amphetamine use disorder, severe, F15.20. 3. Delirium, F05, resolved. ASSESSMENT/PLAN 1. Supportive psychotherapy and psychoeducation provided to the patient. 2. Educated about benefits and side effects of medication and course and prognosis of illness. 3. Advised to continue with current medication and is okay at this time to discontinue hold. Discontinue one-to-one sitter. The patient, if medically stable can be followed in the outpatient basis. In the meantime, we will continue to follow. Please feel free to call if any questions, telephone #[phone]. Dictated by... Johnathan Ferguson M.D. Unit #: [id number] #: [id number] Patient: JOSE BELTRAN INDIO/suresh TD: 09/24/2016 04:29 JOB #: [id number] CONSULTATION REPORT Page 1 of 1 X Johnathan Ferguson MD X CONSULTATION REPORT
--- NOTE | ~2016-09-21 | A ---
[facility] Nutrition Therapy DATE: 09/22/16 Patient: JOSE BELTRAN Physician: JACQUELINE Address: [address] [place] [address] Room/Bed: [address] [place] [address], Zip: [place] [address] Admit Date: 09/21/16 Date of : [birth year] Height: 5 0 Weight: 87 39.8 NUTRITIONAL ASSESSMENT: REASON: Low BMI 51 y/o female admitted for OD PMH: polysubstance abuse, pancreatitis, DM, HTN, COPD, anxiety, depression, GI bleeding issues Anthropometrics: Ht: 5'0" Wt: 39.5 kg (87#) BMI: 17.0 IBW: 100# 87% IBW Labs: K+ 3.0, Gluc 209, BUN <5, Creat 0.4, Ca++ 8.0, POC 260, Lip <10 Meds: NaCl, Folvite, Thiamine, Mg, MVI, Novolog I/O & Bowel function: 3281/602, last BM 09/21 Skin Integrity: Abrasions, bruising (BUE, BLE), scar (BUE) Estimated Nutrition Needs: Increased d/t low BMI Assessment: Chart reviewed, events noted. Pt reported current body weight is her usual, ranging from 85-92#. Pt reported wt loss of ~15#, which pt has recently gained back. Pt reports good appetite, consuming ~100% of meals. RD encouraged Glucerna shakes d/t blood sugar levels, pt agreed. RD encouraged adequate intake to prevent further unintentional weight loss and promote gradual weight gain. Pt reported no diet questions. See recommendations below. Dx: Underweight RT PMH AEB 17.0 BMI, 87% IBW. Intervention: 1. Glucerna shakes QID Monitoring, Evaluation and Goals: 1. PO intake; consume >75% of meals/supplements 2. Weight; promote gradual weight gain, prevent unintentional weight loss 3. Labs; WNL: gluc 4. Skin; promote skin healing Recommendations: 1. Order chocolate Glucerna shakes QID. D/C chocolate Ensure shakes TID. [facility] Nutrition Therapy DATE: 09/22/16 Patient: JOSE BELTRAN Physician: JACQUELINE Address: [address] [place] [address] Room/Bed: [address] [place] [address], Zip: [place] [address] Admit Date: 09/21/16 Date of : [birth year] Height: 5 0 Weight: 87 39.8 2. Appreciate family and staff to encourage adequate calorie and protein intake. 3. Obtain weights q 3 days for monitoring purposes. Pt is at a mild-moderate nutritonal risk. RD will f/u per protocol. Respectfully, Brenda Stokes, Funeral Driver Eulogio Monreal, MS, RD, LD Food and Nutritional Services [facility] cc: client file
--- NOTE | ~2016-09-21 | EKG ---
PATIENT: JOSE BELTRAN UNIT #: [id number] Ventricular Rate: 84 BPM Atrial Rate: 84 BPM P-R Interval: 126 ms QRS Duration: 84 ms Q-T Interval: 366 ms QTC Calculation(Bezet): 432 ms P [place]: 81 degrees Calculated R [place]: 81 degrees Calculated T [place]: 78 degrees Diagnosis Line: Normal sinus rhythm Diagnosis Line: Right atrial enlargement Diagnosis Line: Otherwise normal ECG Diagnosis Line: No previous ECGs available Diagnosis Line: Confirmed by RENETTA LUEVANO MD ([id number]) on 09/22/2016 Diagnosis Line: 10:57:32 PM INTERPRETING MD: CHLOÉ BLAIR
[~2016-09-21 04:10] MED LIST changes: +AMITRYPTYLINE PO; +CREON DR 24,001 EACH PO; +FERRO-TIME325 MG PO; +FLOMAX0.4 M1 PO; +IMITREX25 MG PO; +LANTUS100 U/ML SUBQ; +LORTAB 7.51 TAB PO; +NEURONTIN300 MG PO; +NICOTINE PATCH1 EACH TD; +PAXIL PO
[2016-09-21 04:14] LABS: URINE SOURCE CLEAN CATCH
[2016-09-21 04:27] LABS: BASOPHIL# 0.1 X10e3 (0-0.3); BASOPHIL% 0.6 % (0-2.5); EOSINOPHIL% 0.1 % (0.0-7.0); HEMATOCRIT 32.8 % (35.0-45.0); HEMOGLOBIN 10.2 gm/dL (12.0-16.0); LYMPHOCYTE% 9.6 % (17.0-45.0); MEAN CELL VOLUME 76.9 FL (83-96); MEAN CORPUSCULAR HEMOGLOBIN 23.9 PG (28-34); MEAN CORPUSCULAR HGB CONC 31.1 g/dL (30-36); MEAN PLATELET VOLUME 7.4 FL (6.5-11.5); MONOCYTE# 1.4 X10e3 (0-1.0); MONOCYTE% 6.7 % (3.0-12.0); NEUTROPHIL# 17.4 X10e3 (1.5-7.1); PLATELET COUNT 516 X10e3 (140-420); RED BLOOD COUNT 4.27 X10e (3.90-5.30); RED CELL DISTRIBUTION WIDTH 26.2 % (11.0-15.5); URBCS1 AUWI 0-2 /[HPF] (0-2); URINE BACTERIA AUWI NEG (NEGATIVE); URINE SQUAMOUS EPITHELIAL CELL NONE SEEN /[HPF]; UWBCS1 AUWI 0-2 (0-5); WHITE BLOOD COUNT 20.9 X10e3 (4.0-10.5)
[2016-09-21 04:28] LABS: DIFF IND YES
[2016-09-21 04:29] LABS: CULTURE INDICATED? NO
[2016-09-21 04:38] LABS: PLATELET ESTIMATE INCREASED (NORMAL)
[2016-09-21 04:39] LABS: ANISOCYTOSIS MOD; HYPOCHROMIA SL; MICROCYTOSIS SL; OVALOCYTES PRESENT; POIKILOCYTOSIS SL
[2016-09-21 04:40] LABS: PARTIAL THROMBOPLASTIN TIME 23.5 SECONDS (23.5-31.3); PROTHROMBIN TIME (PATIENT) 10.5 SECONDS (9.6-11.5)
[2016-09-21 04:43] LABS: AMPHETAMINE NEG (NEG); BARBITURATES NEG (NEG); BENZODIAZEPINES NEG (NEG); COCAINE NEG (NEG); MARIJUANA NEG (NEG); OPIATES POS (NEG); TRICYCLIC ANTIDEPRESSANTS POS (NEG); U METHADONE NEG (NEG)
[2016-09-21 04:49] LABS: ALBUMIN SERUM 4.5 g/dL (3.5-5.0); ALKALINE PHOSPHATASE 103 U/L (32-92); ALT (SGPT) 60 U/L (10-40); AST (SGOT) 143 U/L (10-42); BILIRUBIN, DIRECT 0.1 mg/dL (0.0-0.2); BILIRUBIN,INDIRECT 0.2 mg/dL (0.0-0.9); BILIRUBIN,TOTAL 0.3 mg/dL (0.2-2.0); BLOOD UREA NITROGEN 22 mg/dL (9-23); BUN/CREATININE RATIO 24.44; CALCIUM SERUM 9.5 mg/dL (8.4-10.2); CARBON DIOXIDE 20 mmol/L (22-31); CHLORIDE 94 mmol/L (100-111); CPK (CREATINE PHOSPHOKINASE) 3962 IU/L (26-140); CREATININE SERUM 0.9 mg/dL (0.6-1.4); GLUCOSE FASTING 359 mg/dL (70-110); POTASSIUM 4.4 mmol/L (3.5-5.1); PROTEIN TOTAL SERUM 8.1 g/dL (6.0-8.3); SODIUM 132 mmol/L (135-145)
[2016-09-21 04:50] LABS: ALCOHOL BLOOD <5 mg/dL (0)
[2016-09-21 05:10] LABS: URINE APPEARANCE CLEAR; URINE COLOR YELLOW; URINE LEUKOCYTE ESTERASE NEG (NEG); URINE NITRATE NEG (NEG)
[2016-09-21 05:11] LABS: URINE BILIRUBIN NEG (NEG); URINE BLOOD 2+ (NEG); URINE GLUCOSE 1000 MG/DL (NEG); URINE KETONE 1+ (NEG); URINE PROTEIN 1+ (NEG); URINE UROBILINOGEN NORM (NEG)
[2016-09-22 08:10] LABS: BASOPHIL# 0.1 X10e3 (0-0.3); BASOPHIL% 1.2 % (0-2.5); EOSINOPHIL# 0.2 X10e3 (0-0.7); EOSINOPHIL% 1.9 % (0.0-7.0); HEMATOCRIT 30.8 % (35.0-45.0); HEMOGLOBIN 9.6 gm/dL (12.0-16.0); LYMPHOCYTE# 1.8 X10e3 (1.0-3.5); LYMPHOCYTE% 22.8 % (17.0-45.0); MEAN CELL VOLUME 77.4 FL (83-96); MEAN CORPUSCULAR HEMOGLOBIN 24.2 PG (28-34); MEAN CORPUSCULAR HGB CONC 31.3 g/dL (30-36); MEAN PLATELET VOLUME 7.2 FL (6.5-11.5); MONOCYTE# 0.7 X10e3 (0-1.0); MONOCYTE% 9.2 % (3.0-12.0); NEUTROPHIL# 5.2 X10e3 (1.5-7.1); NEUTROPHIL% 64.9 % (40-75); PLATELET COUNT 385 X10e3 (140-420); RED BLOOD COUNT 3.98 X10e (3.90-5.30); RED CELL DISTRIBUTION WIDTH 26.6 % (11.0-15.5)
[2016-09-22 08:13] LABS: DIFF IND NO
[2016-09-22 08:54] LABS: ALKALINE PHOSPHATASE 68 U/L (32-92); ALT (SGPT) 40 U/L (10-40); AST (SGOT) 57 U/L (10-42); BILIRUBIN,TOTAL 0.6 mg/dL (0.2-2.0); CARBON DIOXIDE 21 mmol/L (22-31); CHLORIDE 108 mmol/L (100-111); CPK (CREATINE PHOSPHOKINASE) 1085 IU/L (26-140); CREATININE SERUM 0.4 mg/dL (0.6-1.4); GLOM FILT RATE Estimated 118.9 mL/min (>60); GLUCOSE FASTING 209 mg/dL (70-110); PROTEIN TOTAL SERUM 5.5 g/dL (6.0-8.3); SODIUM 140 mmol/L (135-145)
[2016-09-22 08:59] LABS: BLOOD UREA NITROGEN <5 mg/dL (9-23); LIPASE <10 U/L (22-51)
[2016-09-23 07:33] LABS: HEMATOCRIT 29.9 % (35.0-45.0); HEMOGLOBIN 9.6 gm/dL (12.0-16.0); MEAN CELL VOLUME 76.9 FL (83-96); MEAN CORPUSCULAR HEMOGLOBIN 24.5 PG (28-34); MEAN CORPUSCULAR HGB CONC 31.9 g/dL (30-36); MEAN PLATELET VOLUME 6.8 FL (6.5-11.5); RED BLOOD COUNT 3.9 X10e (3.90-5.30); RED CELL DISTRIBUTION WIDTH 27.3 % (11.0-15.5); WHITE BLOOD COUNT 10.6 X10e3 (4.0-10.5)
[2016-09-23 08:02] LABS: CALCIUM SERUM 8.9 mg/dL (8.4-10.2); CREATININE SERUM 0.5 mg/dL (0.6-1.4); GLOM FILT RATE Estimated 110.5 mL/min (>60); POTASSIUM 3.1 mmol/L (3.5-5.1)
[2016-09-23] MEDS ORDERED: LEVAQUIN750 MG PO (12:30)
[2016-09-25 15:36] LABS: HA AB IGM (HEPPAN) Nonreactive (Nonreactive); HB CORE AB IGM (HEPPAN) Nonreactive (Nonreactive); HB S AG (HEPPAN) Nonreactive (Nonreactive); HEP C AB (HEPPAN) Nonreactive (Nonreactive); HEP C AB SIGNAL TO CUTOFF 0.01 ratio (<1.00)
== END 2016-09-23 14:59 | disposition home or self-care (01) | DRG 91 ==
LOC: CED 04:10 → CEDOF 07:15 → C3A PCU 10:58
PROVIDERS: Emergency Medicine; Family Medicine
DX: G92 Toxic encephalopathy (principal); J96.00 Acute respiratory failure, unspecified whether with hypoxia or hypercapnia; E43 Unspecified severe protein-calorie malnutrition; J18.9 Pneumonia, unspecified organism; F05 Delirium due to known physiological condition; M62.82 Rhabdomyolysis; F11.20 Opioid dependence, uncomplicated; K86.1 Other chronic pancreatitis; Z68.1 Body mass index [BMI] 19.9 or less, adult; F15.20 Other stimulant dependence, uncomplicated; F33.2 Major depressive disorder, recurrent severe without psychotic features; I10 Essential (primary) hypertension; E11.9 Type 2 diabetes mellitus without complications; Z79.4 Long term (current) use of insulin; J44.9 Chronic obstructive pulmonary disease, unspecified; F41.9 Anxiety disorder, unspecified; F32.9 Major depressive disorder, single episode, unspecified; Z79.899 Other long term (current) drug therapy; G89.4 Chronic pain syndrome; D64.9 Anemia, unspecified; F39 Unspecified mood [affective] disorder; R00.0 Tachycardia, unspecified; E86.0 Dehydration; F29 Unspecified psychosis not due to a substance or known physiological condition
CPT/HCPCS: 36415; 36600; 51701; 70450; 71010; 71250; 80048; 80053; 80074; 80076; 80200; 80202; 80307; 81003; 82550; 82553; 82607; 82803; 82947; 83036; 83605; 83690; 84443; 84484; 85025; 85027; 85610; 85730; 87040; 87804; 87806; 93005; 94640; 96361; 96365; 96374; 96375; 99285; 99291; G0480; J1815; J2060; J2543; J2930; J3260; J3370; J3411; J3475; J3486

== ENCOUNTER 2016-10-18 14:45 | Emergency (ER) | payer MEDICARE, OTHER ==
--- NOTE | ~2016-10-18 | CT71 ---
[facility] A Service of [facility] RADIOLOGY TEXT RESULTS PATIENT: JOSE BELTRAN LOCATION: [facility] : 61 UNIT #: [id number] AGE: [address]: Kevon Jaimes DO SEX: F ORDER DR: [id number] [facility] [address] [place], [place] [address] [id number] E MR#: [id number] #: [id number] NAME: JOSE BELTRAN : 1965 SEX: F STUDY DATE/TIME: 10/18/2016 16:45 UNIT: [facility] ROOM: STUDY DESCRIPTION: CT Head Wo Contrast Attending Physician: Kevon Jaimes D.O. Referring Physician: Shakeel Mccabe A.P.R.N. Ordering Physician: Kevon Jaimes D.O. Primary Care Physician: Shakeel Mccabe A.P.R.N. MEDICAL IMAGING REPORT This report is preliminary unless electronic signature is present EXAM Noncontrast head CT HISTORY Weakness, lethargy, dizziness, onset this morning. COMPARISON STUDIES Head CT 09/18/2016. TECHNIQUE Axial noncontrast images were obtained from the skull base to the vertex. This CT exam was performed with one or more of the following radiation dose reduction techniques: automatic exposure control, adjustment of mA and/or kV according to patient size, and iterative reconstruction. FINDINGS Ventricular size and configuration are normal. There is no evidence of acute infarct or hemorrhage. There are no extraaxial fluid collections. No mass lesion or mass effect is seen. There are no skull fractures. IMPRESSION Normal noncontrast head CT. Dictated by... Romeo Barnes M.D. THIS IS AN ELECTRONICALLY VERIFIED REPORT Romeo Barnes M.D. at 10/18/2016 8:37 PM MARC/sharron [facility] A Service of [facility] RADIOLOGY TEXT RESULTS PATIENT: JOSE BELTRAN LOCATION: [facility] : 61 UNIT #: [id number] AGE: [address]: Kevon Jaimes DO SEX: F ORDER DR: TD: 10/18/2016 19:37 JOB #: [id number] MEDICAL IMAGING REPORT Page 1 of 1 COPY
--- NOTE | ~2016-10-18 | EKG ---
PATIENT: JOSE BELTRAN UNIT #: [id number] Ventricular Rate: 62 BPM Atrial Rate: 62 BPM P-R Interval: 146 ms QRS Duration: 94 ms Q-T Interval: 394 ms QTC Calculation(Bezet): 399 ms P Petal: 64 degrees Calculated R Petal: 56 degrees Calculated T Petal: 61 degrees Diagnosis Line: Normal sinus rhythm Diagnosis Line: Possible Left atrial enlargement Diagnosis Line: Borderline ECG Diagnosis Line: When compared with ECG of 21-SEP-2016 04:58, Diagnosis Line: No significant change was found Diagnosis Line: Confirmed by BURTON BEATTY MD ([id number]) on 10/18/2016 Diagnosis Line: 6:41:50 PM INTERPRETING MD: JACI BLAIR
--- NOTE | ~2016-10-18 | CR72 ---
[facility] A Service of [facility] RADIOLOGY TEXT RESULTS PATIENT: JOSE BELTRAN LOCATION: [facility] : 61 UNIT #: [id number] AGE: [address]: Kevon Jaimes DO SEX: F ORDER DR: [id number] [place] [id number] [facility]. [place], [place] [address] [id number] E MR#: [id number] #: [id number] NAME: JOSE BELTRAN : 1965 SEX: F STUDY DATE/TIME: 10/18/2016 14:19 UNIT: [facility] ROOM: STUDY DESCRIPTION: CR Chest Single View Portable Attending Physician: Kevon Jaimes D.O. Referring Physician: Shakeel Mccabe A.P.R.N. Ordering Physician: Kevon Jaimes D.O. Primary Care Physician: Shakeel Mccabe A.P.R.N. MEDICAL IMAGING REPORT This report is preliminary unless electronic signature is present EXAM Portable chest HISTORY Altered mental status, shortness of air and apparent acute onset. History of pancreatitis, diabetes. COMPARISON STUDIES 09/21/2016. FINDINGS Portable view of the chest demonstrates moderate lung volumes, satisfactory technique. Minimal elevation left hemidiaphragm, probably related to mild air distension of the stomach. No focal airspace disease or consolidation. Interval resolution of left lung infiltrate as noted on the 09/21/2016 study. No effusions. Heart, mediastinum unremarkable. No pneumothorax. Dictated by... Romeo Barnes M.D. THIS IS AN ELECTRONICALLY VERIFIED REPORT Romeo Barnes M.D. at 10/18/2016 8:36 PM MARC/sharron TD: 10/18/2016 17:07 JOB #: [id number] MEDICAL IMAGING REPORT [facility] A Service of [facility] RADIOLOGY TEXT RESULTS PATIENT: JOSE BELTRAN LOCATION: [facility] : 61 UNIT #: [id number] AGE: [address]: Kevon Jaimes DO SEX: F ORDER DR: Page 1 of 1 COPY
[~2016-10-18 14:45] MED LIST changes: +LEVAQUIN750 MG PO
[2016-10-18 14:59] LABS: ARTERIAL BLD GAS O2 SATURATION 82.1 % (90.0-100.0); ARTERIAL BLOOD GAS CARBOXY HB 4.7 %sat (0.0-9.0); ARTERIAL BLOOD GAS PCO2 46.3 mmHg (35.0-45.0); ARTERIAL BLOOD GAS pH 7.358 (7.350-7.450)
[2016-10-18 15:00] LABS: ARTERIAL BLOOD GAS ALLEN TEST NORMAL; ARTERIAL BLOOD GAS ART SITE RIGHT RADIAL; ARTERIAL BLOOD GAS PO2 53.6 mmHg (80.0-100); ARTERIAL DRAW? YES
[2016-10-18 15:02] LABS: POC - CKMB 6.4 ng/mL (0.0-7.9); POC - TROPONIN <0.05 ng/mL (<=0.05)
[2016-10-18 15:04] LABS: BASOPHIL# 0.1 X10e3 (0-0.3); BASOPHIL% 0.8 % (0-2.5); EOSINOPHIL# 0.3 X10e3 (0-0.7); EOSINOPHIL% 1.6 % (0.0-7.0); HEMATOCRIT 33.3 % (35.0-45.0); HEMOGLOBIN 10.6 gm/dL (12.0-16.0); LYMPHOCYTE# 1.8 X10e3 (1.0-3.5); LYMPHOCYTE% 10.7 % (17.0-45.0); MEAN CELL VOLUME 78.5 FL (83-96); MEAN CORPUSCULAR HEMOGLOBIN 24.9 PG (28-34); MEAN CORPUSCULAR HGB CONC 31.8 g/dL (30-36); MEAN PLATELET VOLUME 6.9 FL (6.5-11.5); MONOCYTE# 1.3 X10e3 (0-1.0); MONOCYTE% 7.5 % (3.0-12.0); NEUTROPHIL# 13.6 X10e3 (1.5-7.1); NEUTROPHIL% 79.4 % (40-75); PLATELET COUNT 636 X10e3 (140-420); RED BLOOD COUNT 4.25 X10e (3.90-5.30); WHITE BLOOD COUNT 17.1 X10e3 (4.0-10.5)
[2016-10-18 15:05] LABS: DIFF IND YES
[2016-10-18 15:11] LABS: INR 0.9; PARTIAL THROMBOPLASTIN TIME 25.7 SECONDS (23.5-31.3); PROTHROMBIN TIME (PATIENT) 9.9 SECONDS (9.6-11.5)
[2016-10-18 15:32] LABS: ALBUMIN SERUM 4.1 g/dL (3.5-5.0); ALKALINE PHOSPHATASE 101 U/L (32-92); ALT (SGPT) 16 U/L (10-40); AST (SGOT) 24 U/L (10-42); BILIRUBIN,TOTAL 0.1 mg/dL (0.2-2.0); BLOOD UREA NITROGEN 20 mg/dL (9-23); CALCIUM SERUM 9.5 mg/dL (8.4-10.2); CARBON DIOXIDE 26 mmol/L (22-31); CHLORIDE 94 mmol/L (100-111); CREATININE SERUM 0.8 mg/dL (0.6-1.4); GLOM FILT RATE Estimated 84.2 mL/min (>60); GLUCOSE FASTING 136 mg/dL (70-110); POTASSIUM 4.1 mmol/L (3.5-5.1); PROTEIN TOTAL SERUM 7.8 g/dL (6.0-8.3); SODIUM 131 mmol/L (135-145)
[2016-10-18 15:37] LABS: BILIRUBIN, DIRECT <0.1 mg/dL (0.0-0.2)
[2016-10-18 15:50] LABS: PLATELET ESTIMATE INCREASED (NORMAL)
[2016-10-18 15:51] LABS: MICROCYTOSIS MOD; POIKILOCYTOSIS MOD
[2016-10-18 17:38] LABS: POC - CKMB <1.0 ng/mL (0.0-7.9); POC - TROPONIN <0.05 ng/mL (<=0.05)
== END 2016-10-18 19:40 | disposition left against medical advice (07) ==
LOC: CED 14:45
PROVIDERS: Emergency Medicine
DX: F11.10 Opioid abuse, uncomplicated (principal); R09.02 Hypoxemia; E11.9 Type 2 diabetes mellitus without complications; F17.210 Nicotine dependence, cigarettes, uncomplicated; D64.9 Anemia, unspecified
CPT/HCPCS: 36415; 36600; 70450; 71010; 80048; 80076; 82140; 82553; 82803; 82947; 83605; 84484; 85025; 85610; 85730; 93005; 96374; 99284; G0480

== ENCOUNTER 2017-01-20 14:04 | Emergency (ER) | payer MEDICARE, OTHER ==
[~2017-01-20] VITALS: Ht 152.4 cm; Wt 37.2 kg
[2017-01-20 16:29] LABS: BASOPHIL# 0.2 X10e3 (0-0.3); EOSINOPHIL# 0.1 X10e3 (0-0.7); EOSINOPHIL% 0.8 % (0.0-7.0); HEMATOCRIT 36.5 % (35.0-45.0); HEMOGLOBIN 12.2 gm/dL (12.0-16.0); LYMPHOCYTE# 1.9 X10e3 (1.0-3.5); LYMPHOCYTE% 22.8 % (17.0-45.0); MEAN CELL VOLUME 83.1 FL (83-96); MEAN CORPUSCULAR HEMOGLOBIN 27.8 PG (28-34); MEAN CORPUSCULAR HGB CONC 33.5 g/dL (30-36); MEAN PLATELET VOLUME 6.5 FL (6.5-11.5); MONOCYTE# 0.8 X10e3 (0-1.0); MONOCYTE% 9.2 % (3.0-12.0); NEUTROPHIL# 5.3 X10e3 (1.5-7.1); NEUTROPHIL% 65.2 % (40-75); PLATELET COUNT 497 X10e3 (140-420); RED CELL DISTRIBUTION WIDTH 15.5 % (11.0-15.5); WHITE BLOOD COUNT 8.2 X10e3 (4.0-10.5)
[2017-01-20 16:47] LABS: DIFF IND NO
[2017-01-20 17:15] LABS: ALBUMIN SERUM 4.4 g/dL (3.5-5.0); ALKALINE PHOSPHATASE 92 U/L (32-92); ALT (SGPT) 19 U/L (10-40); AST (SGOT) 18 U/L (10-42); BILIRUBIN,TOTAL 0.2 mg/dL (0.2-2.0); BLOOD UREA NITROGEN 14 mg/dL (9-23); BUN/CREATININE RATIO 23.33; CALCIUM SERUM 9.9 mg/dL (8.4-10.2); CARBON DIOXIDE 25 mmol/L (22-31); CHLORIDE 92 mmol/L (100-111); CREATININE SERUM 0.6 mg/dL (0.6-1.4); GLOM FILT RATE Estimated 103.3 mL/min (>60); GLUCOSE FASTING 312 mg/dL (70-110); LIPASE 16 U/L (22-51); POTASSIUM 5.1 mmol/L (3.5-5.1); PROTEIN TOTAL SERUM 8.6 g/dL (6.0-8.3)
[2017-01-20 17:21] LABS: BILIRUBIN, DIRECT <0.1 mg/dL (0.0-0.2); BILIRUBIN,INDIRECT 0.1 mg/dL (0.0-0.9); SODIUM 125 mmol/L (135-145)
== END 2017-01-20 17:40 | disposition home or self-care (01) ==
LOC: CED 14:04
DX: R10.84 Generalized abdominal pain (principal); R11.10 Vomiting, unspecified; E87.1 Hypo-osmolality and hyponatremia; R19.7 Diarrhea, unspecified; M54.9 Dorsalgia, unspecified; E11.9 Type 2 diabetes mellitus without complications; I10 Essential (primary) hypertension; F39 Unspecified mood [affective] disorder; K86.1 Other chronic pancreatitis; F17.200 Nicotine dependence, unspecified, uncomplicated; Z98.51 Tubal ligation status; Z98.890 Other specified postprocedural states
CPT/HCPCS: 80048; 80076; 82550; 83690; 85025; 99284; J2405